=== PATIENT | female | born 1990 | race Caucasian/White ===

== ENCOUNTER 2022-08-05 13:26 | Emergency (ER) | payer SELFPAY ==
[2022-08-05 13:27] VITALS: BP 129/71; PULSE 113; RESP 17; TEMP 37; O2SAT 100; BMI 39.4
--- NOTE | 2022-08-05 13:36 | HMH.EDFEV ---
Discharge Plan Disposition Patient Disposition: Home, Self-Care Prescriptions Prescriptions: No Action Pre-Marianela Multivitamins/Minerals 27-1-300 mg Capsule 1 cap PO DAILY Referrals Follow up/Referrals: Provider,Referral, MD [Referring] - See instructions Activity Restrictions/Add. Instructions Additional Instructions/Restrictions: Drink plenty of fluids including things like Gatorade or Powerade. Follow-up with your primary care doctor in about 1 week to have your electrolytes checked again. Today all of your electrolytes appeared to be low. This could be a lab error. Nevertheless I recommend that you have these tests done again to make sure everything is okay. Return to the emergency department immediately if you feel worse in any way. Avoid aspirin and or ibuprofen. However, Tylenol is perfectly fine in . Clinical Impressions Clinical Impression: Upper respiratory infection Stand Alone Forms Stand Alone Forms: Work/School Release Instructions Patient Instructions: DI for Fever (Symptom) -- Adult Discharge ED Provider: Petar Godoy Fever HPI General Chief Complaint: Upper Respiratory Infection Stated Complaint: Fever ear pain sore throat 23 Wks Time Seen by Provider: 08/05/22 13:30 History of Present Illness HPI Narrative: The patient presents to the emergency department complaining of intermittent fevers of up to 102. She also has some bilateral ear pain and sore throat. She has been exposed to family members diagnosed with bronchitis. She is 23 weeks . She denies vomiting, diarrhea, or abdominal pain. She also denies dysuria or vaginal bleeding. Related Data Home Medications Medication Instructions Recorded Confirmed [id number] 3-fat com #1 27 1 cap PO DAILY Supplement 08/05/22 08/05/22 mg-1 mg-300 mg capsule Allergies Allergy/AdvReac Type Severity Reaction Status Date / Time LACTOSE (FOOD) Allergy Unknown NA-NAUSEA Uncoded 02/13/17 14:13 [facility] Disclaimer: The information contained in this section may have been updated after the patient was seen, as this information can be updated by other users. Medical History (Updated 08/05/22 @ 15:21 by Petar Godoy MD) No significant past medical history Surgical History (Updated 08/05/22 @ 13:39 by Alejandro Grewal RN) [place] teeth extracted Family History (Updated 08/05/22 @ 13:40 by Alejandro Grewal RN) Other No significant family history Social History Smoking Status: Never smoker ROS Obtained: Yes All systems reviewed & no additional complaints except as documented Physical Exam General General appearance: alert and in no apparent distress Head Head exam: atraumatic Eye Eye exam: Present normal appearance ENT ENT exam: Present normal exam, normal oropharynx and TM's normal bilaterally Neck Neck exam: Present normal inspection and full ROM; Absent tenderness or meningismus Chest Chest inspection: Present normal inspection and symmetric chest wall rise; Absent tenderness Respiratory Respiratory exam: Present normal lung sounds bilaterally; Absent respiratory distress or accessory muscle use Cardiovascular Cardiovascular exam: Present regular rate, normal rhythm and normal heart sounds Abdominal Exam Abdominal exam: Present soft, normal bowel sounds and other (Gravid uterus just above the umbilicus consistent with stated gestational age.); Absent distention, tenderness, heel tap sign, Escalante's sign, Rovsing's sign, tenderness at McBurney's Point or mass Extremities Exam Extremities exam: Present normal inspection and full ROM; Absent calf tenderness Back Exam Back exam: Present normal inspection; Absent CVA tenderness (R) or CVA tenderness (L) Neurological Exam Neurological exam: Present alert and oriented X3 Psychiatric Psychiatric exam: Present normal affect and normal mood Skin Skin exam: Present warm, dry, i
[2022-08-05 14:00] VITALS: BP 121/74; PULSE 99; O2SAT 100
[2022-08-05 14:15] LABS: Coronavirus 19, PCR Not Detected (NotDetected); Influenza A, PCR Not Detected (NotDetected); Influenza B, PCR Not Detected (NotDetected)
[2022-08-05 14:17] LABS: Chloride 96 mmol/L (98-107)
[2022-08-05 14:18] LABS: Basophils % 0.4 % (0.1-2.0); Eosinophils % 0.2 % (0.1-12.0); Hemoglobin 12.5 g/dL (12.2-16.2); Lymphocytes # 1.2 K/mm3 (0.7-4.5); Mean Corpuscular HGB Conc 33.1 g/dL (31.8-35.4); Mean Corpuscular Hemoglobin 29.1 pg (27.0-31.2); Mean Platelet Volume 9.3 fl (7.4-10.4); Monocytes # 0.3 K/mm3 (0.1-1.0); Monocytes % 3.7 % (1.7-9.3); Neutrophils # 6.7 K/mm3 (1.8-7.8); Neutrophils % 80.8 % (37.0-80.0); Platelet Count 98 K/mm3 (142-424); Potassium 3.4 mmoL/L (3.5-5.1); Red Blood Count 4.31 M/mm3 (4.20-5.40); Red Cell Distribution Width 14.1 % (11.5-17.5); Sodium 129 mmol/L (136-145); White Blood Count 8.3 K/mm3 (4.8-10.8)
[2022-08-05 14:21] LABS: Alanine Aminotransferase 101 U/L (12-78); Albumin Level 3.3 g/dl (3.5-5.0); Albumin/Globulin Ratio 1.1 (1.1-1.8); Alkaline Phosphatase 101 U/L (38-126); Anion Gap 13.4 mEq/L (5-15); Aspartate Amino Transferase 103 U/L (14-36); Bilirubin,Total 1.3 mg/dl (0.2-1.3); Blood Urea Nitrogen 6 mg/dl (7-17); Calcium 8.5 mg/dl (8.4-10.2); Carbon Dioxide 23 mmol/L (22.0-30.0); Creatinine Clearance Estimated 349 mL/min (50-200); Estimated Glomerular Filt Rate 187 ml/min (>60); GFR (African American) 227 ML/MIN (>60); Glucose 127 mg/dl (74-100); Total Protein,Serum 6.3 g/dl (6.3-8.2)
[2022-08-05 14:30] VITALS: BP 108/50; PULSE 90; O2SAT 99
--- NOTE | 2022-08-05 14:35 | PC.NURSE ---
gave pt a blanket at bedside
[2022-08-05 15:00] VITALS: BP 103/59; PULSE 103; O2SAT 100
[2022-08-05 15:18] VITALS: BP 113/60; PULSE 98; RESP 16; TEMP 37; O2SAT 99
[2022-08-05 15:30] VITALS: BP 126/65; PULSE 103; O2SAT 100
== END 2022-08-05 15:45 | disposition home or self-care (01) ==
PROVIDERS: Emergency Provider Emergency Medicine; PCP Family Medicine
DX: O99.512 Diseases of the respiratory system complicating pregnancy, second trimester (principal); J06.9 Acute upper respiratory infection, unspecified; R50.9 Fever, unspecified; Z3A.23 23 weeks gestation of pregnancy
CPT/HCPCS: 80053; 85025; 87636; 96360; 99284; C9803; U0003; U0005

== ENCOUNTER 2024-02-14 21:53 | Emergency (ER) | payer SELFPAY ==
[2024-02-14 21:55] VITALS: BP 138/84; PULSE 85; RESP 18; TEMP 36.4; O2SAT 99; BMI 37.8
--- NOTE | 2024-02-14 22:13 | ED_ITS ---
Discharge Plan Disposition Patient Disposition: Home, Self-Care Prescriptions Prescriptions: New ondansetron HCl 4 mg tablet 4 mg PO Q8H PRN (Reason: nausea and vomiting) 5 Days Qty: 30 0RF No Action Pre-Marianela Multivitamins/Minerals 27-1-300 mg Capsule 1 cap PO DAILY Referrals Follow up/Referrals: Geraldo Vegas MD [Primary Care Provider] - See instructions Activity Restrictions/Add. Instructions Additional Instructions/Restrictions: Lease take Zofran as needed for nausea and vomiting. Please try to stay hydrated. Please follow-up with your primary care provider. Please return to the emergency department if you develop any new or worsening symptoms or become concerned for your health. Clinical Impressions Clinical Impression: Enteritis Instructions Patient Instructions: DI for Diarrhea and Traveler's Diarrhea -- Adult, DI for Diarrhea and Traveler's Diarrhea -- Child, DI for Nausea -- Adult, DI for Nausea -- Child Print Language Print Language: Swedish Discharge ED Provider: Mike Greene General Adult HPI <Valentin Clements MD - Last Filed: 02/15/24 01:11> General Chief complaint: Nausea/Vomiting/Diarrhea Stated complaint: vomiting, diarrhea, chills Time Seen by Provider: 02/14/24 22:13 Mode of Arrival: Wheelchair Source of Information: Patient and Significant Other Limitations: No Limitations Description of Symptoms (Recalled from ER Triage Doc. by RN): Patient reports x5 hours of vomiting,diarrhea, nausea and chills. Spouse states their 3 daughters just got over a stomach bug. Patient denies any fevers. History of Present Illness HPI narrative: Patient presents for evaluation of nausea vomiting diffuse abdominal pain gradual in onset starting today, constant, associated trace hematemesis. Patient unsure if her diarrhea is bloody. No exacerbating or alleviating factors. Patient has had sick contacts with similar symptoms. No chest pain or palpitations. Please note that above description of symptoms, in this electronic medical record under categorization of recalled from ER triage doctor by RN are reflective of an initial nursing assessment, however, is not reflective of my full history and physical exam that was personally taken and clarified. Consequentially, this preceding description of symptoms, which may include the patient's categorized chief complaint in the EMR, do not reflect my personal clinical impression, and the ultimate description of history of present illness and patient stated complaints should be deferred to this section of the note. Unless stated otherwise or congruent with this section of the note, additional signs, symptoms, or incongruence should be interpreted as inaccurate with my clinical impression. Related Data Home Medications ?Medication ?Instructions ?Recorded ?Confirmed [id number] 3-fat com #1 27 1 cap PO DAILY Supplement 08/05/22 08/05/22 mg-1 mg-300 mg capsule Previous Rx's ?Medication ?Instructions ?Recorded ondansetron HCl 4 mg tablet 4 mg PO Q8H PRN nausea and 02/15/24 vomiting 5 days #30 tabs Allergies Allergy/AdvReac Type Severity Reaction Status Date / Time LACTOSE (FOOD) Allergy Unknown NA-NAUSEA Uncoded 02/13/17 14:13 [facility] <Valentin Clements MD - Last Filed: 02/15/24 01:11> [facility] Disclaimer: The information contained in this section may have been updated after the patient was seen, as this information can be updated by other users. Medical History (Updated 02/15/24 @ 01:51 by Mike Greene MD) No significant past medical history Surgical History (Updated 08/05/22 @ 13:39 by Alejandro Grewal RN) [place] teeth extracted Family History (Updated 08/05/22 @ 13:40 by Alejandro Grewal, RN) Other No significant family history Social History (Updated 02/15/24 @ 01:11 by Valentin Clements MD) Smoking Status: Never smoker alcohol intake: former current occupational status: other Travel in the last 8 weeks: None Have you lived/traveled outside US in past 30 days?: No Contact w/someone who lives/traveled outside US past 30 days?: No Exposure to someone with infectious disease in past 14 days?: No Do you have a fever (greater than 100.4 F or 38 C)?: No Have you tested positive for COVID-19: No Exposed to someone with COVID-19 in past 14 days?: Yes Do you have a sore throat?: No Do you have a cough?: No Do you have any weakness?: No Do you have any diarrhea?: Yes Are you experiencing any unusual bleeding?: No Do you have any muscle aches/pain?: No Do you have any abdominal pain?: Yes Are you experiencing loss of taste or smell?: No <Valentin Clements MD - Last Filed: 02/15/24 01:11> ROS Obtained: Yes other As per HPI Physical Exam <Valentin Clements MD - Last Filed: 02/15/24 01:11> General General appearance: alert and in no apparent distress Head Head exam: atraumatic and normocephalic Eye Eye exam: Present normal appearance Neck Neck exam: Present normal inspection Chest Chest inspection: Present normal inspection and symmetric chest wall rise Respiratory Respiratory exam: Present normal lung sounds bilaterally; Absent respiratory distress Cardiovascular Cardiovascular exam: Present regular rate and normal rhythm Abdominal Exam Abdominal exam: Present soft Neurological Exam Neurological exam: Present alert and oriented X3 Psychiatric Psychiatric exam: Present normal affect and normal mood Skin Skin exam: Present warm and dry Medical Decision Making <Valentin Clements MD - Last Filed: 02/15/24 01:11> Medical Records Medical records reviewed: Yes I reviewed the patient's medical records. Screening: Per USPSTF and CDC recommendations, given the prevalence of disease in our region, it is our hospital?s policy to screen for HIV and viral Hepatitis for all patients aged 18 and over and those with ongoing risk factors. [place] Inquiry Pt receiving controlled substance: No Vital Signs: 02/14/24 21:55 02/15/24 02:00 Temperature 97.6 F 98 F Temperature Source Oral Pulse Rate 77 Pulse Rate [Right Brachial] 85 Respiratory Rate 18 18 Blood Pressure 131/75 Blood Pressure [Right Arm] 138/84 Blood Pressure Mean [Right Arm] 102 Blood Pressure Source [Right Arm] Automatic Cuff Blood Pressure Position [Right Arm] Supine 02 Sat by Pulse Oximetry 99 Oxygen Delivery Method Room Air Room Air Lab Data Lab Results 02/14/24 22:40: WBC 28.3 H*, RBC 5.58 H, Hgb 15.8, Hct 48.3 H, MCV 86.6, MCH 28.3, MCHC 32.7, RDW 12.5, Plt Count 334, MPV 9.7, Neut % (Auto) 88.3 H, Lymph % (Auto) 4.0 L, [place]ois % (Auto) 6.9, Eos % (Auto) 0.0 L, Baso % (Auto) 0.3, Neut # (Auto) 24.9 H, Lymph # (Auto) 1.1, [place]quois # (Auto) 2.0 H, Eos # (Auto) 0.0, Baso # (Auto) 0.1, Total Counted 100, Neutrophils % (Manual) 82 H, Band Neutrophils % 6.0, Lymphocytes % (Manual) 6 L, Monocytes % (Manual) 6, Platelet Estimate Normal, RBC Morphology Normal, Sodium 136, Potassium 4.6, Chloride 106, Carbon Dioxide 19 L, Anion Gap 15.6 H, BUN 22 H, Creatinine 0.80, Estimated Creat Clear 161, Estimated GFR 84, Est GFR ( Amer) 101, Glucose 147 H, Calcium 9.5, Total Bilirubin 0.8, AST 33, ALT 21, Alkaline Phosphatase 96, Total Protein 8.1 D, Albumin 4.8, Globulin 3.3 H, Albumin/Globulin Ratio 1.5, Lipase 60, Serum HCG, Qual Negative, HIV Ag/Ab Combo Qual Negative 02/14/24 22:40 02/14/24 22:40 Orders (Tests/Meds): ED MEDICATIONS Discontinued Medications Generic Name Dose Route Start Last Admin Trade Name Freq PRN Reason Stop Dose Admin Droperidol 2.5 mg 02/14/24 22:43 02/14/24 23:01 Droperidol 5mg/2ml Vial IV 02/14/24 22:44 2.5 mg ONCE ONE Administration Lactated Ringer's 1,000 mls @ 999 mls/hr 02/14/24 22:14 02/14/24 22:42 Lactated Ringer's 1000 Ml Bag IV 02/14/24 23:14 999 mls/hr .Q1H1M ONE Administration Iopamidol 75 ml 02/14/24 23:55 02/14/24 23:58 Iopamidol-370 (76%);100ml Bottle IV 02/14/24 23:56 75 ml ONCE ONE Administration Morphine Sulfate 4 mg 02/14/24 22:14 02/14/24 22:43 Morphine 4mg/Ml Syringe IV 02/14/24 22:15 Not Given ONCE ONE Ondansetron HCl 4 mg 02/14/24 22:14 02/14/24 22:43 Ondansetron 4mg/2ml Vial IV 02/14/24 22:15 Not Given ONCE ONE Sodium Chloride 10 ml 02/14/24 23:55 02/14/24 23:56 Sodium Chloride 0.9% 10ml Syr (Rad Only) IV 02/14/24 23:56 10 ml ONCE ONE Administration ORDERS Category Date Time Status CT abdomen pelvis w con Stat Cat Scan 02/14/24 22:40 Completed CBC w/Auto Diff [Complete Blood Count Auto Diff] Stat Lab 02/14/24 22:40 Completed CMP [Comprehensive Metabolic Panel] Stat Lab 02/14/24 22:40 Completed HCG Qualitative, Serum Stat Lab 02/14/24 22:40 Completed HIV Combo Stat Lab 02/14/24 22:40 Completed Hep C Ab with Reflex to RNA Stat Lab 02/14/24 22:40 Received Lipase Stat Lab 02/14/24 22:40 Completed Medical Decision Narrative: Patient with history and exam per above presenting for evaluation of diffuse abdominal pain, nausea, vomiting Diagnoses considered include Vanesa-Constantino tear, enteritis, gastroenteritis, acute kidney injury, among others ED workup and treatment included: ED MEDICATIONS Discontinued Medications Generic Name Dose Route Start Last Admin Trade Name Freq PRN Reason Stop Dose Admin Droperidol 2.5 mg 02/14/24 22:43 02/14/24 23:01 Droperidol 5mg/2ml Vial IV 02/14/24 22:44 2.5 mg ONCE ONE Administration Lactated Ringer's 1,000 mls @ 999 mls/hr 02/14/24 22:14 02/14/24 22:42 Lactated Ringer's 1000 Ml Bag IV 02/14/24 23:14 999 mls/hr .Q1H1M ONE Administration Iopamidol 75 ml 02/14/24 23:55 02/14/24 23:58 Iopamidol-370 (76%);100ml Bottle IV 02/14/24 23:56 75 ml ONCE ONE Administration Morphine Sulfate 4 mg 02/14/24 22:14 02/14/24 22:43 Morphine 4mg/Ml Syringe IV 02/14/24 22:15 Not Given ONCE ONE Ondansetron HCl 4 mg 02/14/24 22:14 02/14/24 22:43 Ondansetron 4mg/2ml Vial IV 02/14/24 22:15 Not Given ONCE ONE Sodium Chloride 10 ml 02/14/24 23:55 02/14/24 23:56 Sodium Chloride 0.9% 10ml Syr (Rad Only) IV 02/14/24 23:56 10 ml ONCE ONE Administration ORDERS Category Date Time Status CT abdomen pelvis w con Stat Cat Scan 02/14/24 22:40 Taken CBC w/Auto Diff [Complete Blood Count Auto Diff] Stat Lab 02/14/24 22:40 Completed CMP [Comprehensive Metabolic Panel] Stat Lab 02/14/24 22:40 Completed HCG Qualitative, Serum Stat Lab 02/14/24 22:40 Completed HIV Combo Stat Lab 02/14/24 22:40 Completed Hep C Ab with Reflex to RNA Stat Lab 02/14/24 22:40 Received Lipase Stat Lab 02/14/24 22:40 Completed Labs were independently interpreted by me, significant for leukocytosis, other labs pending Imaging pending at this time Please refer to radiology report for full details. Care transferred to incoming physician. <Mike Greene MD - Last Filed: 02/15/24 06:47> Vital Signs: 02/14/24 21:55 02/15/24 02:00 Temperature 97.6 F 98 F Temperature Source Oral Pulse Rate 77 Pulse Rate [Right Brachial] 85 Respiratory Rate 18 18 Blood Pressure 131/75 Blood Pressure [Right Arm] 138/84 Blood Pressure Mean [Right Arm] 102 Blood Pressure Source [Right Arm] Automatic Cuff Blood Pressure Position [Right Arm] Supine 02 Sat by Pulse Oximetry 99 Oxygen Delivery Method Room Air Room Air Lab Data Lab Results 02/14/24 22:40: WBC 28.3 H*, RBC 5.58 H, Hgb 15.8, Hct 48.3 H, MCV 86.6, MCH 28.3, MCHC 32.7, RDW 12.5, Plt Count 334, MPV 9.7, Neut % (Auto) 88.3 H, Lymph % (Auto) 4.0 L, [place] % (Auto) 6.9, Eos % (Auto) 0.0 L, Baso % (Auto) 0.3, Neut # (Auto) 24.9 H, Lymph # (Auto) 1.1, [place] # (Auto) 2.0 H, Eos # (Auto) 0.0, Baso # (Auto) 0.1, Total Counted 100, Neutrophils % (Manual) 82 H, Band Neutrophils % 6.0, Lymphocytes % (Manual) 6 L, Monocytes % (Manual) 6, Platelet Estimate Normal, RBC Morphology Normal, Sodium 136, Potassium 4.6, Chloride 106, Carbon Dioxide 19 L, Anion Gap 15.6 H, BUN 22 H, Creatinine 0.80, Estimated Creat Clear 161, Estimated GFR 84, Est GFR ( Amer) 101, Glucose 147 H, Calcium 9.5, Total Bilirubin 0.8, AST 33, ALT 21, Alkaline Phosphatase 96, Total Protein 8.1 D, Albumin 4.8, Globulin 3.3 H, Albumin/Globulin Ratio 1.5, Lipase 60, Serum HCG, Qual Negative, HIV Ag/Ab Combo Qual Negative Orders (Tests/Meds): ED MEDICATIONS Discontinued Medications Generic Name Dose Route Start Last Admin Trade Name Freq PRN Reason Stop Dose Admin Droperidol 2.5 mg 02/14/24 22:43 02/14/24 23:01 Droperidol 5mg/2ml Vial IV 02/14/24 22:44 2.5 mg ONCE ONE Administration Lactated Ringer's 1,000 mls @ 999 mls/hr 02/14/24 22:14 02/14/24 22:42 Lactated Ringer's 1000 Ml Bag IV 02/14/24 23:14 999 mls/hr .Q1H1M ONE Administration Iopamidol 75 ml 02/14/24 23:55 02/14/24 23:58 Iopamidol-370 (76%);100ml Bottle IV 02/14/24 23:56 75 ml ONCE ONE Administration Morphine Sulfate 4 mg 02/14/24 22:14 02/14/24 22:43 Morphine 4mg/Ml Syringe IV 02/14/24 22:15 Not Given ONCE ONE Ondansetron HCl 4 mg 02/14/24 22:14 02/14/24 22:43 Ondansetron 4mg/2ml Vial IV 02/14/24 22:15 Not Given ONCE ONE Sodium Chloride 10 ml 02/14/24 23:55 02/14/24 23:56 Sodium Chloride 0.9% 10ml Syr (Rad Only) IV 02/14/24 23:56 10 ml ONCE ONE Administration ORDERS Category Date Time Status CT abdomen pelvis w con Stat Cat Scan 02/14/24 22:40 Completed CBC w/Auto Diff [Complete Blood Count Auto Diff] Stat Lab 02/14/24 22:40 Completed CMP [Comprehensive Metabolic Panel] Stat Lab 02/14/24 22:40 Completed HCG Qualitative, Serum Stat Lab 02/14/24 22:40 Completed HIV Combo Stat Lab 02/14/24 22:40 Completed Hep C Ab with Reflex to RNA Stat Lab 02/14/24 22:40 Received Lipase Stat Lab 02/14/24 22:40 Completed Medical Decision Narrative: Patient with history and exam per above presenting for evaluation of diffuse abdominal pain, nausea, vomiting Diagnoses considered include Vanesa-Constantino tear, enteritis, gastroenteritis, acute kidney injury, among others ED workup and treatment included: ED MEDICATIONS Discontinued Medications Generic Name Dose Route Start Last Admin Trade Name Marguerite PRN Reason Stop Dose Admin Droperidol 2.5 mg 02/14/24 22:43 02/14/24 23:01 Droperidol 5mg/2ml Vial IV 02/14/24 22:44 2.5 mg ONCE ONE Administration Lactated Ringer's 1,000 mls @ 999 mls/hr 02/14/24 22:14 02/14/24 22:42 Lactated Ringer's 1000 Ml Bag IV 02/14/24 23:14 999 mls/hr .Q1H1M ONE Administration Iopamidol 75 ml 02/14/24 23:55 02/14/24 23:58 Iopamidol-370 (76%);100ml Bottle IV 02/14/24 23:56 75 ml ONCE ONE Administration Morphine Sulfate 4 mg 02/14/24 22:14 02/14/24 22:43 Morphine 4mg/Ml Syringe IV 02/14/24 22:15 Not Given ONCE ONE Ondansetron HCl 4 mg 02/14/24 22:14 02/14/24 22:43 Ondansetron 4mg/2ml Vial IV 02/14/24 22:15 Not Given ONCE ONE Sodium Chloride 10 ml 02/14/24 23:55 02/14/24 23:56 Sodium Chloride 0.9% 10ml Syr (Rad Only) IV 02/14/24 23:56 10 ml ONCE ONE Administration ORDERS Category Date Time Status CT abdomen pelvis w con Stat Cat Scan 02/14/24 22:40 Taken CBC w/Auto Diff [Complete Blood Count Auto Diff] Stat Lab 02/14/24 22:40 Completed CMP [Comprehensive Metabolic Panel] Stat Lab 02/14/24 22:40 Completed HCG Qualitative, Serum Stat Lab 02/14/24 22:40 Completed HIV Combo Stat Lab 02/14/24 22:40 Completed Hep C Ab with Reflex to RNA Stat Lab 02/14/24 22:40 Received Lipase Stat Lab 02/14/24 22:40 Completed Labs were independently interpreted by me, significant for leukocytosis, other labs pending Imaging pending at this time Please refer to radiology report for full details. Care transferred to incoming physician. Jc KIRBY: I assumed care of the patient at the time of handoff from the prior provider. On reassessment patient is sleeping comfortably. She has not had a bowel movement in the ED. Laboratories otherwise show mildly elevated anion gap, mildly elevated creatinine for patient but normal for age, consistent with mild dehydration. CT imaging interpreted by me shows enteritis and diffusely fluid- filled bowel consistent with diarrheal state, no convincing evidence of colitis. Interactive discussion was had with patient regarding presentation. She reports no blood in the diarrhea. Given patient has not had a bowel movement here, no PCR was sent. She was discharged in stable condition with return precautions. Afterwards upon review, I think she would benefit from stool study for assessment for C. difficile. I attempted to call to communicate with patient that we would provide her with an outpatient order form for a GI PCR and stool ova and parasites but we were initially unsuccessful in contacting her. We attempted in the morning and were again unsuccessful but left a message to call back and come to the ER to provide a stool sample. Critical Care <Valentin Clements MD - Last Filed: 02/15/24 01:11> Critical Care Time Critical Care Time: No
--- NOTE | 2024-02-14 22:40 | CT_ITS ---
PROCEDURE INFORMATION: Exam: CT Abdomen And Pelvis With Contrast Exam date and time: 02/14/2024 11:47 PM Age: 33 years old Clinical indication: Abdominal tenderness and nausea and vomiting; Abdominal pain; Additional info: N/v/diffuse abd pain TECHNIQUE: Imaging protocol: Computed tomography of the abdomen and pelvis with contrast. Total images: 318 Radiation optimization: All CT scans at this facility use at least one of these dose optimization techniques: automated exposure control; mA and/or kV adjustment per patient size (includes targeted exams where dose is matched to clinical indication); or iterative reconstruction. Contrast material: ISOVUE; Contrast volume: 75 ml; Contrast route: IV; COMPARISON: No relevant prior studies available. FINDINGS: Lungs: Lung bases are clear. Heart: Normal heart size. Diaphragm: Small hiatal hernia. Liver: Nonenlarged liver with steatosis. Normal contour. No mass. Gallbladder and biliary ducts: Normal. No calcified stones. No ductal dilation. Pancreas: Normal. No ductal dilation. Spleen: Normal. No splenomegaly. Adrenal glands: Normal. No mass. Kidneys and ureters: No hydronephrosis, nephrolithiasis, or renal mass. Stomach and bowel: Mostly collapsed stomach. Unremarkable duodenum. Diffuse mild small bowel wall thickening. Fluid-filled nondilated small bowel loops. Unremarkable terminal ileum. Fluid-filled nondilated colon and rectum with scattered air-fluid levels. No significant colonic wall thickening. Appendix: No evidence for appendicitis. Intraperitoneal space: Unremarkable. No free air. No significant fluid collection. Vasculature: The abdominal aorta is normal in caliber. Major abdominal vessels enhance appropriately. Pelvic phleboliths. Lymph nodes: Mildly prominent but not pathologically enlarged mesenteric lymph nodes, likely reactive/postinflammatory. Urinary bladder: Unremarkable as visualized. Reproductive: Physiologic uterus and ovaries. 17 mm right ovarian dominant follicle. No adnexal mass. Bones/joints: Unremarkable. No acute fracture. Soft tissues: Diastasis of the rectus fascia the umbilicus. IMPRESSION: 1. Acute enteritis. No bowel obstruction or free air. 2. Fluid-filled colon and rectum with scattered air-fluid levels in keeping with diarrheal state. No convincing evidence of active colitis. 3. Hepatic steatosis. 4. Mesenteric adenitis, likely reactive/postinflammatory.
[2024-02-14] MEDS: LACTATED RINGERS 1000ML 1,000 ML 999 ML IV (22:42)
[2024-02-14 22:54] LABS: Hematocrit 48.3 % (37.0-47.0); Hemoglobin 15.8 g/dL (12.2-16.2); Red Blood Count 5.58 M/mm3 (4.20-5.40); White Blood Count 28.3 K/mm3 (4.8-10.8)
[2024-02-14 22:55] LABS: Basophils % 0.3 % (0.1-2.0); Mean Corpuscular HGB Conc 32.7 g/dL (31.8-35.4); Mean Corpuscular Hemoglobin 28.3 pg (27.0-31.2); Mean Corpuscular Volume 86.6 fl (81-99); Mean Platelet Volume 9.7 fl (7.4-10.4); Monocytes % 6.9 % (1.7-9.3); Neutrophils # 24.9 K/mm3 (1.8-7.8); Neutrophils % 88.3 % (37.0-80.0); Platelet Count 334 K/mm3 (142-424); Red Cell Distribution Width 12.5 % (11.5-17.5)
[2024-02-14 22:56] LABS: Basophils # 0.1 K/mm3 (0-0.2); Lymphocytes # 1.1 K/mm3 (0.7-4.5); MANUAL DIFFERENTIAL MANUAL DIFFERENTIAL (MANUAL DIFF)
[2024-02-14 22:58] LABS: Alanine Aminotransferase 21 U/L (12-78); Albumin Level 4.8 g/dl (3.5-5.0); Albumin/Globulin Ratio 1.5 (1.1-1.8); Alkaline Phosphatase 96 U/L (38-126); Aspartate Amino Transferase 33 U/L (14-36); Bilirubin,Total 0.8 mg/dl (0.2-1.3); Blood Urea Nitrogen 22 mg/dl (7-17); Calcium 9.5 mg/dl (8.4-10.2); Carbon Dioxide 19 mmol/L (22.0-30.0); Chloride 106 mmol/L (98-107); Creatinine Clearance Estimated 161 mL/min (50-200); Estimated Glomerular Filt Rate 84 ml/min (>60); GFR (African American) 101 ML/MIN (>60); Globulin 3.3 g/dL (1.3-3.2); Glucose 147 mg/dl (74-100); Lipase 60 U/L (23-300); Sodium 136 mmol/L (136-145); Total Protein,Serum 8.1 g/dl (6.3-8.2)
--- NOTE | 2024-02-14 22:58 | ECG_ITS ---
APPROVED REPORT Exam: Resting ECG HR:92 bpm ECG Measurements Heart Rate 92 AXES MD 138 P 73 QRSd 76 QRS 88 QT 364 T 47 QTc 414 Conclusion SINUS RHYTHM NORMAL ECG UNCONFIRMED REPORT Electronically signed by : LYNDSEY GOLDSTEIN, 02/15/2024 06:50:35
[2024-02-14] MEDS: droPERidol 5MG/2ML VIAL 2.5 MG IV (23:01)
[2024-02-14 23:11] LABS: HCG Qualitative, Serum Negative (Negative)
[2024-02-14 23:22] LABS: Anion Gap 15.6 mEq/L (5-15); Potassium 4.6 mmoL/L (3.5-5.1)
--- NOTE | 2024-02-14 23:22 | PC.NURSE ---
Patient was cleaned up and placed in a gown. Patient is resting comfortable in bed with spouse at bedside.
[2024-02-14 23:48] LABS: Lymphocytes % 6 % (10-50); Monocytes % 6 % (2-9); Neutrophils % 82 % (42-76); Platelet Estimate Normal; RBC Morphology Normal; Total Cells Counted 100
[2024-02-14 23:54] LABS: HIV Combo NEGATIVE (Negative)
[2024-02-14] MEDS: SODIUM CHLORIDE 0.9% 10ML SYR (RAD ONLY) 10 ML IV (23:56)
[2024-02-14] MEDS: IOPAMIDOL-370 (76%);100ML BOTTLE 75 ML IV (23:58)
[2024-02-15 02:00] VITALS: BP 131/75; PULSE 77; RESP 18; TEMP 36.6; O2SAT 99
--- NOTE | 2024-02-15 10:48 | PC.NURSE ---
contacted pt about wanted to collect a stool sample due to her wbc. Pt states that she will collect and bring to the hospital.
[2024-02-16 08:14] LABS: HCV Ab Non Reactive (Non Reactive)
== END 2024-02-15 02:10 | disposition home or self-care (01) ==
PROVIDERS: Emergency Medicine; Emergency Provider Emergency Medicine; PCP Family Medicine
DX: K52.9 Noninfective gastroenteritis and colitis, unspecified (principal); R11.2 Nausea with vomiting, unspecified; R10.9 Unspecified abdominal pain
CPT/HCPCS: 74177; 80053; 83690; 84703; 85007; 85025; 85027; 86803; 87389; 93005; 96361; 96374; 96375; 99285; J1790; J7120; Q9967